=== PATIENT | female | born 1985 | race Caucasian/White ===

== ENCOUNTER 2023-11-03 01:37 | Emergency (ER) | payer OTHER ==
[2023-11-03 01:46] VITALS: TEMP 97.1
--- NOTE | 2023-11-03 02:18 | ERPHSYRPT ---
- History of Present Illness Time Seen by Provider: 11/03/23 01:50 Source: patient Exam Limitations: no limitations Patient Subjective Stated Complaint: migraine Triage Nursing Assessment: pt brought back to ER 9 via wheelchair per pt's . Pt is moaning and crying and very anxious, c/o migraine headache which began around 9pm. Pt states, "I've been having these every day". Pt has been calling her dr everyday but they haven't called her back. Pt's doctor is in [place], [place] [facility], but states, "I won't go back to the [facility] because they are stupid and don't treat you right". Pt c/o her head hurting all over and her spine. Pt denies any falls or any loc. Physician History: 38-year-old female history of migraine headache presents to our ED with the [facility]. Patient's headache is global. Patient's headaches are managed by her primary care doctor. 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 Patient's current headache started at 9 PM. Symptoms have been constant. No trauma no fever. No vomiting. Symptoms are moderate in intensity. Patient is sensitive to bright light and loud sounds. Patient voices no other complaints or concerns at this time. Portions of this note were created with voice recognition technology. There may be grammatical, spelling, punctuation or sound alike errors Timing/Duration: today Quality: aching Head Pain Location: global Severity of Pain-Max: moderate Severity of Pain-Current: moderate Recent Head Trauma: frequent headaches Modifying Factors: Improves With: exposure to light, noise Associated Symptoms: denies symptoms Previous symptoms: same symptoms as today Allergies/Adverse Reactions: No Known Drug Allergies Allergy (Verified 11/03/23 01:57) Hx Tetanus, Diphtheria Vaccination/Date Given: No Hx Influenza Vaccination/Date Given: Yes Hx Pneumococcal Vaccination/Date Given: No Immunizations Up to Date: No Travel Risk - International Travel Have you traveled outside of the country in past 3 weeks: No - Emerging Infectious Disease Are you exhibiting symptoms associated with any current EIDs: Yes Symptoms: Other (Please Comment) Comment: GENERALIZED PAIN - Review of Systems Constitutional: No Symptoms, No Fever, No Chills Eyes: No Symptoms Ears, Nose, & Throat: No Symptoms Respiratory: No Symptoms, No Cough, No Dyspnea Cardiac: No Symptoms, No Chest Pain, No Edema, No Syncope Abdominal/Gastrointestinal: No Symptoms, No Abdominal Pain, No Nausea, No Vomiting, No Diarrhea Genitourinary Symptoms: No Symptoms, No Dysuria Musculoskeletal: No Symptoms, No Back Pain, No Neck Pain Skin: No Symptoms, No Rash Neurological: No Symptoms, No Dizziness, No Focal Weakness, No Sensory Changes Psychological: No Symptoms Endocrine: No Symptoms Hematologic/Lymphatic: No Symptoms Immunological/Allergic: No Symptoms All Other Systems: Reviewed and Negative - Past Medical History Pertinent Past Medical History: Yes Neurological History: Migraines, Seizures Cardiac History: No Pertinent History Respiratory History: No Pertinent History Endocrine Medical History: No Pertinent History Musculoskeletal History: Arthritis, Fibromyalgia GI Medical History: Diverticulosis Psycho-Social History: Attention Deficit Disorder, Bipolar Female Reproductive Disorders: Cervical Cancer, Other Other Medical History: Cervical CA, history of laproscopic surgeries, Ovarian cycst, spina bifida occulta, spinal stenosis - Past Surgical History Past Surgical History: Yes Gastrointestinal: Appendectomy Female Surgical History: Other Other Surgical History: cyst removal from ovary, tonsil - Female History Hx Now: No - Social History Smoking Status: Current every day smoker How long have you smoked: 20 yrs Exposure to second hand smoke: Yes Drug Use: none Patient Lives Alone: No - Nursing Vital Signs Nursing Vital Signs: Initial Vital Signs Temperature 97.1 F 11/03/23 01:44 Pulse Rate 112 H 11/03/23 01:44 Respiratory Rate 24 11/03/23 01:44 Blood Pressure 153/105 11/03/23 01:44 O2 Sat by Pulse Oximetry 97 11/03/23 01:44 Pain Scale Pain Intensity 0 - Physical Exam General Appearance: no apparent distress Eye Exam: PERRL/EOMI Ears, Nose, Throat Exam: normal ENT inspection, TMs normal, pharynx normal, moist mucous membranes Neck Exam: normal inspection, supple, full range of motion, No meningismus Respiratory Exam: normal breath sounds, lungs clear, airway intact Cardiovascular Exam: regular rate/rhythm, normal heart sounds, normal peripheral pulses Gastrointestinal/Abdominal Exam: soft, No tenderness, No distention Back Exam: normal inspection, normal range of motion Extremity Exam: normal inspection, normal range of motion, pelvis stable Mental Status Exam: alert, oriented x 3, 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 Exam: normal speech, PERRL, No facial droop Coordination/Gait Exam: normal cerebellar function Motor/Sensory Exam: no motor deficit, no sensory deficit Skin Exam: normal color, warm, dry, No rash Lymphatic Exam: No adenopathy SpO2 Interpretation: normal SpO2: 97 O2 Delivery: Room Air - Course Nursing assessment & vital signs reviewed: Yes - CT Exams Head CT Interpretation: Tele-radiologist Report (Negative for acute intracranial pathology.) Ordered Tests: Active Orders 24 hr Category Date Time Status IV Insertion STAT Care 11/03/23 02:10 Active Pulse Oximetry (ED) STAT Care 11/03/23 02:10 Active HEAD WITHOUT CONTRAST [CT] Stat Exams 11/03/23 02:10 Completed BLOOD CULTURE Stat Lab 11/03/23 03:36 Ordered CBC W DIFF Stat Lab 11/03/23 02:15 Completed CMP Stat Lab 11/03/23 02:15 Completed HCG QUALITATIVE, URINE Stat Lab 11/03/23 03:45 Completed Manual Differential NC Stat Lab 11/03/23 02:15 Completed UA W/RFX UR CULTURE Stat Lab 11/03/23 03:20 Completed Medication Summary Discontinued Medications Generic Name Dose Route Start Last Admin Trade Name Freq PRN Reason Stop Dose Admin Diphenhydramine HCl 25 mg 11/03/23 02:13 11/03/23 02:52 Diphenhydramine Hcl 50 Mg/Ml Vial IV 11/03/23 02:14 25 mg STAT ONE Administration Diphenhydramine HCl Confirm 11/03/23 02:47 Diphenhydramine Hcl 50 Mg/Ml Vial Administered 11/03/23 02:48 Dose 50 mg .ROUTE .STK-MED ONE Ketorolac Tromethamine 60 mg 11/03/23 02:10 11/03/23 02:50 Ketorolac Tromethamine 30 Mg/Ml Inj IM 11/03/23 02:11 Not Given STAT ONE Ketorolac Tromethamine Confirm 11/03/23 02:47 Ketorolac Tromethamine 30 Mg/Ml Inj Administered 11/03/23 02:48 Dose 60 mg .ROUTE .STK-MED ONE Ketorolac Tromethamine 60 mg 11/03/23 02:51 11/03/23 02:51 Ketorolac Tromethamine 30 Mg/Ml Inj IV 11/03/23 02:52 60 mg STAT ONE Administration Prochlorperazine Edisylate 10 mg 11/03/23 02:10 11/03/23 02:53 Prochlorperazine Edisylate 10 Mg/2 Ml Vial IV 11/03/23 02:11 10 mg STAT ONE Administration Prochlorperazine Edisylate Confirm 11/03/23 02:47 Prochlorperazine Edisylate 10 Mg/2 Ml Vial Administered 11/03/23 02:48 Dose 10 mg .ROUTE .STK-MED ONE Lab/Rad Data: Laboratory Result Diagrams 11/03/23 02:15 11/03/23 02:15 Laboratory Results 11/03/23 11/03/23 11/03/23 Range/Units 03:45 03:20 02:15 WBC (4.0-10.5) x10^3/uL RBC (4.1-5.4) x10^6/uL Hgb (12.0-16.0) g/dL Hct (35-47) % MCV (78-100) fL MCH (26-32) pg MCHC (32-36) g/dL RDW (11.5-14.0) % Plt Count (150-450) x10^3/uL MPV (7.5-11.0) fL Sodium 138 (135-145) mmol/L Potassium 3.6 (3.5-5.1) mmol/L Chloride 104 (98-107) mmol/L Carbon Dioxide 25 (22-30) mmol/L Anion Gap 12.0 (5-15) MEQ/L BUN 11 (7-17) mg/dL Creatinine 1.02 (0.52-1.04) mg/dL Estimated GFR 72.7 ML/MIN Glucose 146 H (74-106) mg/dL Calcium 9.7 (8.4-10.2) mg/dL Total Bilirubin 0.70 (0.2-1.3) mg/dL AST 39 H (14-36) U/L ALT 71 H (0-35) U/L Alkaline Phosphatase 123 (38-126) U/L Serum Total Protein 7.8 (6.3-8.2) g/dL Albumin 4.1 (3.5-5.0) g/dL Urine Color Dark Yellow A (Yellow) Urine Appearance Clear (Clear) Urine pH 5.0 (4.6-8.0) Ur Specific [place] >=1.030 A (1.005-1.030) Urine Protein Trace A (Negative) Urine Glucose (UA) Negative (Negative) mg/dL Urine Ketones Negative (Negative) Urine Blood Negative (Negative) Urine Nitrite Negative (Negative) Urine Bilirubin Small A (Negative) Urine Urobilinogen 1.0 A (0.2) mg/dL Ur Leukocyte Esterase Negative (Negative) U Hyaline Cast (Auto) NONE SEEN (0-2) /LPF Urine Microscopic RBC 3-5 (0-5) /HPF Urine Microscopic WBC 0-2 (0-5) /HPF Ur Epithelial Cells Moderate A (None Seen) /HPF Urine Bacteria Rare A (None Seen) /HPF Urine Culture Reflexed NO (NO) Urine HCG, Qual NEGATIVE (NEGATIVE) 11/03/23 Range/Units 02:15 WBC 15.7 H (4.0-10.5) x10^3/uL RBC 4.05 L (4.1-5.4) x10^6/uL Hgb 12.5 (12.0-16.0) g/dL Hct 37.9 (35-47) % MCV 93.6 (78-100) fL MCH 30.9 (26-32) pg MCHC 33.0 (32-36) g/dL RDW 14.1 H (11.5-14.0) % Plt Count 376 (150-450) x10^3/uL MPV 10.7 (7.5-11.0) fL Sodium (135-145) mmol/L Potassium (3.5-5.1) mmol/L Chloride (98-107) mmol/L Carbon Dioxide (22-30) mmol/L Anion Gap (5-15) MEQ/L BUN (7-17) mg/dL Creatinine (0.52-1.04) mg/dL Estimated GFR ML/MIN Glucose (74-106) mg/dL Calcium (8.4-10.2) mg/dL Total Bilirubin (0.2-1.3) mg/dL AST (14-36) U/L ALT (0-35) U/L Alkaline Phosphatase (38-126) U/L Serum Total Protein (6.3-8.2) g/dL Albumin (3.5-5.0) g/dL Urine Color (Yellow) Urine Appearance (Clear) Urine pH (4.6-8.0) Ur Specific [place] (1.005-1.030) Urine Protein (Negative) Urine Glucose (UA) (Negative) mg/dL Urine Ketones (Negative) Urine Blood (Negative) Urine Nitrite (Negative) Urine Bilirubin (Negative) Urine Urobilinogen (0.2) mg/dL Ur Leukocyte Esterase (Negative) U Hyaline Cast (Auto) (0-2) /LPF Urine Microscopic RBC (0-5) /HPF Urine Microscopic WBC (0-5) /HPF Ur Epithelial Cells (None Seen) /HPF Urine Bacteria (None Seen) /HPF Urine Culture Reflexed (NO) Urine HCG, Qual (NEGATIVE) - Progress Progress: improved Air Movement: good Progress Note: 38-year-old female presents to our ED for evaluation of a migraine headache. Physical exam shows patient to be uncomfortable. Neurologic exam within normal limits. CT head negative for acute intracranial pathology. Patient reassessed. Headache resolved. Patient is ready for discharge. Urinalysis negative for UTI. However urine appears somewhat concentrated. Patient admits that she does not drink much water. Patient drinks mostly Mountain Dew. Patient advised to increase her water intake. Patient agrees to do so. She agrees to follow-up with her primary care doctor within 48 hours for reevaluation. Portions of this note were created with voice recognition technology. There may be grammatical, spelling, punctuation or sound alike errors Complexity of problem addressed is moderate acute complicated No critical care time Complexity of data reviewed and analyzed is moderate. Test ordered test reviewed results analyzed and correlated clinically with history and physical exam. Risk of complications and the risk of morbidity/mortality patient management is low Vital stable. Time spent to discharge patient is approximately 15 minutes. Plan of care established for shared decision making. No social determinants of health present complete follow-up. Patient agrees to follow-up with her primary care doctor within 48 hours for evaluation. Portions of this note were created with voice recognition technology. There may be grammatical, spelling, punctuation or sound alike errors 11/03/23 04:11 Blood Culture(s) Obtained: No Antibiotics given: No Counseled pt/family regarding: lab results, diagnosis, need for follow-up, rad results - Departure Departure Disposition: Home Clinical Impression: Migraine headache Condition: Stable Critical Care Time: No Referrals: LESLIE,SELENA R., MD [Primary Care Provider] - Follow up/PCP as directed Additional Instructions: Discharge/Care Plan RIGOBERTO REEVES was seen on 11/03/23 in the Emergency Room. The patient was counseled regarding Diagnosis,Lab results, Imaging studies, need for follow up and when to return to the Emergency Room. Prescriptions given: Discharge Note I have spoken with the patient and/or caregivers. I have explained the patient's condition, diagnosis and treatment plan based on the information available to me at this time. I have answered the patient's and/or caregiver's questions and addressed any concerns. The patient and/or caregivers have as good understanding of the patient's diagnosis, condition and treatment plan as can be expected at this point. The vital signs have been stable. The patient's condition is stable and appropriate for discharge from the emergency department. The patient will pursue further outpatient evaluation with the primary care physician or other designated or consulting physician as outlined in the discharge instructions. The patient and/or caregivers are agreeable to this plan of care and follow-up instructions have been explained in detail. The patient and/or caregivers have received these instruction. The patient/and or caregivers are aware that any significant change in condition or worsening of symptoms should prompt an immediate return to this or the closest emergency department or call 911.
[2023-11-03 02:46] LABS: ALBUMIN 4.1 g/dL (3.5-5.0); BILIRUBIN,TOTAL 0.7 mg/dL (0.2-1.3); Calcium 9.7 mg/dL (8.4-10.2); Creatinine 1 1.02 mg/dL (0.52-1.04); EST GLOMERULAR FILTRATION RATE 72.7 ML/MIN; Potassium 3.6 mmol/L (3.5-5.1); Total Protein 7.8 g/dL (6.3-8.2)
[2023-11-03 02:47] LABS: Hematocrit 37.9 % (35-47); Hemoglobin 12.5 g/dL (12.0-16.0); Mean Cell Volume 93.6 fL (78-100); Mean Corpuscular Hemoglobin 30.9 pg (26-32); Mean Platelet Volume 10.7 fL (7.5-11.0); Platelet Count 376 x10^3/uL (150-450); Red Blood Count 4.05 x10^6/uL (4.1-5.4); Red Cell Distribution Width 14.1 % (11.5-14.0); White Blood Count 15.7 x10^3/uL (4.0-10.5)
[2023-11-03] MEDS ORDERED: BENADRYL 50 MG/ML ONE (02:47)
[2023-11-03] MEDS ORDERED: TORAdol 30 mg Injection ONE (02:47)
[2023-11-03] MEDS ORDERED: Compazine 10 MG/2 ML ONE (02:47)
[2023-11-03] MEDS: TORAdol 30 mg Injection IM ONE (02:50)
[2023-11-03] MEDS: TORAdol 30 mg Injection IV ONE (02:51)
[2023-11-03] MEDS: BENADRYL 50 MG/ML IV ONE (02:52)
[2023-11-03] MEDS: Compazine 10 MG/2 ML IV ONE (02:53)
--- NOTE | 2023-11-03 03:29 | XRAY ---
CLINICAL HISTORY: headache COMPARISON: None. TECHNIQUE: Axial non-contrast CT scan of the brain was performed from the skull base to the high parietal region, and sagittal and coronal reconstructed images were obtained. One of the following dose reduction techniques were utilized for this exam: Automated exposure control, adjustment of the mA and/or kV according to patient size, use of iterative reconstruction. Total DLP: 1016.25 mGy-cm. FINDINGS: The visualized brain parenchyma shows a normal appearance. Carbone-white matter differentiation is maintained. No midline shifts or deformity. No intracerebral or extra axial hematoma. Normal size and configuration of the cerebral ventricles. Slightly prominent fronto-pareital subarachnoid spaces. Normal CT appearance of the posterior fossa structures namely the cerebellar hemispheres, brainstem, and cerebellar peduncles. The cerebello-pontine angles are clear. The osseous structures in the skull base are unremarkable. No definite calvarium fractures. Scanned paranasal sinuses revealed mild right maxillary mucosal thickening and secretions. IMPRESSION: 1. No intra or extra-axial hematomas or parenchymal territorial hypodense areas suggestive of acute ischemic insult. Early changes of stroke may not be detected on a CT scan. If strong clinical suspicion of stroke then suggest MRI with diffusion-weighted imaging. 2. Right maxillary sinus secretions and mild mucosal thickening. [facility] ER was called at [phone] at 2:20 AM SR ACCOUNT EXECUTIVE, 11/03/2023 and Strokes results were verbally communicated to Cristel ( Nurse ) Electronically Signed by: Paola Cuello MD. (11/03/2023 03:24:25 EDT)
[2023-11-03 03:50] LABS: HCG URINE TEST NEGATIVE (NEGATIVE)
[2023-11-03 03:54] LABS: Appearance Clear (Clear); Bacteria Rare /HPF (None Seen); Bilirubin Small (Negative); Blood Negative (Negative); Epithelial Cells Moderate /HPF (None Seen); Glucose, Urine Negative (Negative); Hyaline Casts NONE SEEN /LPF (0-2); Ketones Negative (Negative); Leukocyte Esterase Negative (Negative); Nitrite Negative (Negative); Protein,Urine Dip Trace (Negative); Specific Gravity >=1.030 (1.005-1.030); WBC 0-2 /HPF (0-5)
[2023-11-03 03:57] LABS: ADD URINE CULTURE? NO (NO)
[2023-11-03 04:02] VITALS: BP 121/83; PULSE 92; RESP 18
[2023-11-03 04:10] VITALS: O2SAT 97
[2023-11-03 04:58] LABS: Basophil 1 % (0.0-1.0); Lymphocytes 26 % (24-44); Monocyte 8 % (0.0-12.0); Neutrophils 65 % (36.0-66.0); Platelet Estimate NORMAL (NORMAL); Total Cells Counted 100
== END 2023-11-03 04:23 | disposition home or self-care (01) ==
LOC: ED 01:37
DX: G43.909 Migraine, unspecified, not intractable, without status migrainosus (principal); F17.200 Nicotine dependence, unspecified, uncomplicated; Z85.41 Personal history of malignant neoplasm of cervix uteri
CPT/HCPCS: 36000; 36415; 70450; 80053; 81001; 81025; 85025; 87040; 94760; 96374; 96375; 99284; J1200; J1885

== ENCOUNTER 2023-11-08 00:05 | Emergency (ER) | payer OTHER | END 2023-11-08 00:39 | disposition left against medical advice (07) | LOC: ED 00:05 | DX: Z53.21 Procedure and treatment not carried out due to patient leaving prior to being seen by health care provider (principal) | CPT/HCPCS: 99281 ==